=== PATIENT | male | born 1970 | race Caucasian/White ===

== ENCOUNTER 2019-05-19 13:40 | Inpatient (IN) | payer OTHER ==
[~2019-05-19] VITALS: Ht 185.4 cm; Wt 74.4 kg
--- NOTE | 2019-05-19 13:48 | NUR ---
PT IS IN ROOM #2B. DR TORRES EVALUATED THE PT.
[2019-05-19] MEDS ORDERED: ASPIRIN 81 MG TAB.CHEW ONE (14:10)
[2019-05-19] MEDS ORDERED: NITROGLYCERIN 0.4 MG/TAB BOTTLE SL ONE ×2 (14:10→14:15)
[2019-05-19] MEDS ORDERED: MORPHINE SULFATE 4 MG/1 ML DISP.SYRIN ONE (14:10)
[2019-05-19] MEDS ORDERED: ONDANSETRON 4 MG/2 ML VIAL ONE (14:11)
[2019-05-19] MEDS ORDERED: ASPIRIN 81 MG TAB.CHEW PO ONE (14:15)
[2019-05-19] MEDS ORDERED: MORPHINE SULFATE 2 MG/1 ML DISP.SYRIN IV ONE (14:15)
[2019-05-19] MEDS ORDERED: ONDANSETRON 4 MG/2 ML VIAL IV ONE (14:15)
[2019-05-19 14:18] LABS: BASOPHILS % (AUTO) 0.1 % (0.0-2.0); EOSINOPHILS % (AUTO) 0.2 % (0.0-7.0); HEMATOCRIT 48.3 % (36.7-47.1); HEMOGLOBIN 16.6 g/dL (12.5-16.3); LYMPHOCYTES # (AUTO) 1.2 K/uL (20.0-40.0); LYMPHOCYTES % (AUTO) 8.9 % (20.5-51.5); MEAN CORPUSCULAR HGB CONC 34 g/dL (32.5-36.3); MEAN CORPUSCULAR VOLUME 87.3 fL (73.0-96.2); MONOCYTES # (AUTO) 0.6 K/uL (2.0-10.0); MONOCYTES % (AUTO) 4.7 % (0.0-11.0); NEUTROPHILS # (AUTO) 11.7 K/uL (1.8-8.9); NEUTROPHILS % (AUTO) 86.1 % (38.5-71.5); PLATELET COUNT (AUTO) 256 K/uL (152-348); RED BLOOD CELL COUNT(AUTO) 5.54 MIL/uL (4.06-5.63); WHITE BLOOD COUNT (AUTO) 13.6 K/uL (3.6-10.2)
[2019-05-19 14:24] LABS: CARBON DIOXIDE 29 mmol/L (21-32); CHLORIDE 103 mmol/L (98-107); GLUCOSE 119 mg/dL (74-106); POTASSIUM 3.7 mmol/L (3.5-5.1); UREA NITROGEN, BLOOD 11 mg/dL (7-18)
[2019-05-19] MEDS ORDERED: HYDROMORPHONE 1 MG/1 ML DISP.SYRIN IV ONE ×2 (14:30→15:30)
[2019-05-19 14:37] LABS: ALANINE AMINOTRANSFERASE 48 U/L (16-63); ALKALINE PHOSPHATASE 93 U/L (50-136); ASPARTATE AMINOTRANSFERASE 20 U/L (15-37); BILIRUBIN,TOTAL 0.3 mg/dL (0.2-1.0); TOTAL PROTEIN, SERUM 7.5 g/dL (6.4-8.2)
[2019-05-19 14:42] LABS: BILIRUBIN,DIRECT < 0.1 mg/dL (0.0-0.2)
[2019-05-19] MEDS ORDERED: IOHEXOL 350 100 ML INFUS..BTL ONE (14:45)
[2019-05-19] MEDS ORDERED: IV NORMAL SALINE 250 ML IV ONE (14:45)
[2019-05-19] MEDS ORDERED: IV NORMAL SALINE 1000 ML BAG IV ONE (14:45)
[2019-05-19] MEDS ORDERED: SWABABLE VALVE TRANSFER SET EA MC ONE (14:45)
[2019-05-19] MEDS ORDERED: HYDROMORPHONE 1 MG/1 ML DISP.SYRIN ONE ×2 (14:49→15:33)
[2019-05-19] MEDS ORDERED: PANTOPRAZOLE SODIUM 40 MG VIAL IV ONE (15:30)
[2019-05-19] MEDS ORDERED: PANTOPRAZOLE SODIUM 40 MG VIAL ONE (15:34)
[2019-05-19] MEDS ORDERED: MAG HYDROX/AL HYDROX/SIMETH 30 ML LIQUID UDC PO ONE (15:45)
[2019-05-19] MEDS ORDERED: LIDOCAINE VISCUS 2% 15 ML UDC MM ONE (15:45)
[2019-05-19] MEDS ORDERED: MAG HYDROX/AL HYDROX/SIMETH 30 ML LIQUID UDC ONE (15:54)
[2019-05-19] MEDS ORDERED: LIDOCAINE VISCUS 2% 15 ML UDC ONE (15:54)
--- NOTE | 2019-05-19 18:08 | NUR ---
REPORT WAS GIVEN TO WASTE SPECIALIST. PT WAS TRANSFERED TO ROOM #320.
[2019-05-19] MEDS ORDERED: Z GUARD REMEDY PASTE 57 GM TUBE TOP PRN (18:15)
[2019-05-19] MEDS ORDERED: MORPHINE SULFATE 2 MG/1 ML DISP.SYRIN IV PRN (18:15)
[2019-05-19] MEDS ORDERED: MAGNESIUM HYDROXIDE 30 ML LIQUID UDC PO PRN (18:15)
[2019-05-19] MEDS ORDERED: ONDANSETRON 4 MG/2 ML VIAL IV PRN (18:15)
[2019-05-19] MEDS ORDERED: ENOXAPARIN SODIUM 40 MG/0.4 ML DISP.SYRIN SQ SCH ×2 (18:15→19:00)
[2019-05-19] MEDS ORDERED: ACETAMINOPHEN 325 MG TABLET PO PRN (18:15)
[2019-05-19] MEDS ORDERED: HYDROCODONE/APAP 5-325MG TABLET PO PRN (18:15)
--- NOTE | 2019-05-19 18:30 | NUR ---
received pt. IV in L forearm 20 gauge intact patent saline lock. pt. denies chest pain. pt. denies pain/ discomfort. pt. denies sob/ diffiulty breathing. pt on admitting interviewer. vital signs stable. will endorse to pm nurse.
[2019-05-19 18:35] VITALS: BP 120/75
[2019-05-19 20:20] VITALS: BP 126/75
[2019-05-19] MEDS: ENOXAPARIN SODIUM 40 MG/0.4 ML DISP.SYRIN SQ SCH (21:15)
--- NOTE | 2019-05-19 22:45 | NUR ---
PATIENT REPORTED HAVING INCREASING CHEST DISCOMFORT 7/10, TIGHTNESS WITHOUT RADIATION, DIFFICULTY TAKING DEEP BREATHS. HR IS INCREASING TO 110BPM FROM 85. PUT ON SUPPLEMENTAL O2 AT 2L.
[2019-05-19] MEDS: NITROGLYCERIN 0.4 MG/TAB BOTTLE SL PRN ×2 (23:12→23:36)
--- NOTE | 2019-05-19 23:40 | NUR ---
PATIENT RECEIVED 3 DOSES OF 0.4 MG NITROQUICK WITHOUT ANY RELIEF. [facility]
[2019-05-20 00:10] VITALS: BP 101/63
[2019-05-20] MEDS: NITROGLYCERIN 0.4 MG/TAB BOTTLE SL PRN (00:15)
--- NOTE | 2019-05-20 02:47 | NUR ---
dispatched a call to Dr Loera re: patients chest tightness.
--- NOTE | 2019-05-20 03:04 | NUR ---
SPOKE WITH DR DESAI, ORDERED TO MANAGE WITH MORPHINE FOR COMFORT AND ENDORSE TO THE MORNING SHIFT AND AUTO MACHINIST IN THE AM. NO NEW ORDERS GIVEN.
[2019-05-20 04:20] VITALS: BP 122/69
[2019-05-20 05:30] LABS: BASOPHILS % (AUTO) 0.1 % (0.0-2.0); HEMATOCRIT 44.1 % (36.7-47.1); HEMOGLOBIN 15.4 g/dL (12.5-16.3); LYMPHOCYTES # (AUTO) 1.7 K/uL (20.0-40.0); LYMPHOCYTES % (AUTO) 18.3 % (20.5-51.5); MEAN CORPUSCULAR HEMOGLOBIN 30.4 uug (23.8-33.4); MEAN CORPUSCULAR HGB CONC 35 g/dL (32.5-36.3); MEAN CORPUSCULAR VOLUME 87.4 fL (73.0-96.2); NEUTROPHILS # (AUTO) 6.5 K/uL (1.8-8.9); NEUTROPHILS % (AUTO) 70.6 % (38.5-71.5); PLATELET COUNT (AUTO) 228 K/uL (152-348); RED BLOOD CELL COUNT(AUTO) 5.05 MIL/uL (4.06-5.63); WHITE BLOOD COUNT (AUTO) 9.2 K/uL (3.6-10.2)
[2019-05-20 05:31] LABS: POTASSIUM 3.8 mmol/L (3.5-5.1)
[2019-05-20] MEDS ORDERED: NITROGLYCERIN 0.4 MG/TAB BOTTLE SL PRN (06:59)
[2019-05-20] MEDS: PANTOPRAZOLE SODIUM 40 MG TABLET.DR PO SCH (07:08)
--- NOTE | 2019-05-20 07:47 | NUR ---
patient slept well at night. Off O2 in the morning. chest pain is 2/10, good mood. Receives one dose of 2mg Morphine during the night and 3 doses of 0.4 Nitroquick. Report given to the day shift RN.
--- NOTE | 2019-05-20 08:00 | NUR ---
Received patient awake and alert. Patient shows no signs or symptoms of distress at this time. Patient complains of having frontal left chest discomfort. Patient is sinus rhythm/sinus tachycardia on monitor. Patient to be evaluated by tele rn today. Will continue to monitor patient.
[2019-05-20 08:38] LABS: THYROID STIMULATING HORMONE 0.654 mIU/mL (0.358-3.740)
[2019-05-20] MEDS: IBUPROFEN 600 MG TABLET PO SCH ×3 (10:00→21:53)
--- NOTE | 2019-05-20 10:04 | NUR ---
Motrin for 1000 dose not given. Tylenol given at 0943. Will give next dose at 1400.
[2019-05-20 10:20] LABS: *BILIRUBIN,URIN NEGATIVE (NEGATIVE); *CLARITY,URINE CLEAR (CLEAR); *COLOR,URINE YELLOW (YELLOW); *KETONES,URINE NEGATIVE (NEGATIVE); *UROBILINOGEN,URINE 0.2 E.U./dl (NORMAL); LEUKOCYTE ESTERASE ,URINE NEGATIVE (NEGATIVE); NITRITE, URINE NEGATIVE (NEGATIVE); PH,URINE 6.5 (5.0-8.0); UGLUCOSE NEGATIVE (NEGATIVE)
[2019-05-20 10:25] LABS: *BLOOD, URINE NEGATIVE (NEGATIVE)
[2019-05-20 11:22] VITALS: BP 113/69
--- NOTE | 2019-05-20 14:30 | NUR ---
Patient seen by Fermentation Engineer. Patient scheduled for CTA of the heart in AM with assistance of nursing telemarketer supervisor. Will continue to monitor patient.
[2019-05-20 15:43] VITALS: BP 126/75
[2019-05-20 16:47] LABS: *AMPHETAMINE, URINE NEGATIVE (NEGATIVE); *BARBITURATE, URINE NEGATIVE (NEGATIVE); *CANNABINOID, URINE NEGATIVE (NEGATIVE); *COCCAINE, URINE NEGATIVE (NEGATIVE); *OPIATE, URINE POSITIVE (NEGATIVE); *PHENCYCLIDINE SCREEN,URINE NEGATIVE (NEGATIVE)
--- NOTE | 2019-05-20 17:01 | NUR ---
Advised patient to be NPO after midnight for tomorrow's procedure. Patient verbalized understanding and has no further questions.
[2019-05-20 20:00] VITALS: BP 109/67
--- NOTE | 2019-05-20 20:00 | NUR ---
patient is awake , oriented x 4 , on ra , denies chest pain . hp , intact left hand , ambulatory w/o assist
[2019-05-20] MEDS: ENOXAPARIN SODIUM 40 MG/0.4 ML DISP.SYRIN SQ SCH (20:45)
[2019-05-21 00:20] VITALS: BP 109/73
--- NOTE | 2019-05-21 01:26 | NUR ---
* Helps perform self care activities * Maintains maximum range of motion * Regains muscle mass and strength * Maintains vital signs WNL during activity Addendum: 05/21/19 at 0128 by RAVI NEGRETE RN Amended: Links added.
--- NOTE | 2019-05-21 01:27 | NUR ---
* Identifies sources of fear * Demonstrates new coping skills * Verbalizes reduction in fear Addendum: 05/21/19 at 0128 by RVAI NEGRETE RN Amended: Links added.
--- NOTE | 2019-05-21 01:27 | NUR ---
* Understands anatomy and physiology * Describes reportable s/s * Understands treatment plan * Understands medication regime Addendum: 05/21/19 at 0128 by RAVI NEGRETE RN Amended: Links added.
--- NOTE | 2019-05-21 01:27 | NUR ---
* Exhibits adequate oxygenation and ventilation * Exhibits adequate cardiac output * Exhibits stable cardiac rhythm * Maintains urine output > 30 cc/hr Addendum: 05/21/19 at 0128 by RAVI NEGRETE RN Amended: Links added.
--- NOTE | 2019-05-21 01:28 | NUR ---
Identify options for pain control - Analgesics - Narcotics - Non-medication measures Addendum: 05/21/19 at 0128 by RAVI NEGRETE RN Amended: Links added.
[2019-05-21 04:20] VITALS: BP 106/62
--- NOTE | 2019-05-21 04:30 | NUR ---
awake , oriented , able to follow command , deyvi chest pain , no distress
[2019-05-21] MEDS: IBUPROFEN 600 MG TABLET PO SCH ×2 (06:00→13:40)
--- NOTE | 2019-05-21 08:00 | NUR ---
AWAKE ALERT AND ORIENTED X3, DENIES PAIN OR SOB. NPO FOR CTA HEART. SB ON MONITOR
[2019-05-21 08:21] VITALS: BP 106/63
[2019-05-21] MEDS: PANTOPRAZOLE SODIUM 40 MG TABLET.DR PO SCH (08:54)
--- NOTE | 2019-05-21 11:25 | NUR ---
NPO MAINTAINED NO SS OF PAIN OR DISTRESS
[2019-05-21 11:52] VITALS: BP 108/74
--- NOTE | 2019-05-21 17:14 | NUR ---
BACK FROM [facility]IA AMBULANCE, DENIES PAIN OR DISTRESS. RESULTS OF CTA HEART GIVEN TO DR AVINA AND ALSO HOSPITALIST MADE AWARE.
[2019-05-21] MEDS ORDERED: IBUP-1953 PO ×3 (17:48)
[2019-05-21] MEDS ORDERED: PANT40TA2 PO (17:48)
--- NOTE | 2019-05-21 18:00 | NUR ---
SEEN BY DRIVER SALES AND MEDICAL HOSPITALIST WITH [facility] HOME ORDER
--- NOTE | 2019-05-21 18:11 | NUR ---
DISCHARGED HOME STABLE WITH RX AND FOLLOW-UP INSTRUCTION WITH PCP AND BINDER COVERSTITCH ACCOMPANIED BY
== END 2019-05-21 18:20 | disposition home or self-care (01) | DRG 315 ==
LOC: ER 13:40 → TELE3 18:09
PROVIDERS: ADMIT Nurse Practitioner Acute Care; ATTEND Nurse Practitioner Acute Care
DX: I31.9 Disease of pericardium, unspecified (principal); J98.11 Atelectasis; I31.3 Pericardial effusion (noninflammatory); K21.9 Gastro-esophageal reflux disease without esophagitis; D72.829 Elevated white blood cell count, unspecified; K40.90 Unilateral inguinal hernia, without obstruction or gangrene, not specified as recurrent; J30.2 Other seasonal allergic rhinitis; Z82.49 Family history of ischemic heart disease and other diseases of the circulatory system; Z83.3 Family history of diabetes mellitus
CPT/HCPCS: 36415; 70030-TC; 71045; 71260; 80307; 83735; 84100; 84443; 85025; 85730; 93005; 93307; A4663; C9113; G0378; J1170; J1650; J2270; J2405; J7030; J7050; Q9967